=== PATIENT | male | born 1955 | race Caucasian/White ===

== ENCOUNTER 2020-02-01 10:13 | Outpatient (CLI) | payer MEDICARE, OTHER | END 2020-02-01 10:14 | disposition home or self-care (01) | LOC: RT 10:13 | PROVIDERS: ATTEND Internal Medicine Cardiovascular Disease | DX: I25.10 Atherosclerotic heart disease of native coronary artery without angina pectoris (principal) | CPT/HCPCS: 93005 ==

== ENCOUNTER 2021-12-04 09:12 | Outpatient (CLI) | payer MEDICARE, OTHER ==
[2021-12-04 09:57] LABS: CHOL/HDL RATIO 3.2 (<5.0); CHOLESTEROL 173 mg/dL; HDL CHOLESTEROL 54 mg/dL; TRIGLYCERIDES 30 mg/dL
== END 2021-12-04 09:13 | disposition home or self-care (01) ==
LOC: LAB 09:12
PROVIDERS: ATTEND Internal Medicine Cardiovascular Disease
DX: I10 Essential (primary) hypertension (principal)
CPT/HCPCS: 36415; 80061; 83721

== ENCOUNTER 2021-12-16 07:50 | Outpatient (CLI) | payer MEDICARE, OTHER ==
--- NOTE | 2021-12-16 08:41 | CARDIAC PROCEDURE NOTE ---
Stress Test Report Service Date: 12/16/21 Service Time: 08:00 Ordering Provider: Travon Frances MD Indication for Test: Assess for inducible ischemia in asymptomatic patient with abnormal coronary calcium score (465) on screening. Significant Medical History: Very healthy and active individual without chronic conditions; he is very physically active around his [place]-acre property and denies any chest discomfort, dyspnea, palpitations or decrement in stamina. He had recent fasting lipids showing TChol 173, TG 30, HDLc 54. He believes Dr Frances has recommended initiation of statin for the high calcium score. Cardiac Risk Factors: Negative for hypertension, hyperlipidemia, diabetes, family history and significant tobacco smoking ("social" smoking many yrs ago). Type of Stress Test: Exercise Treadmill Test (ETT) Procedure: -Exercise Treadmill Test- After signing informed consent, the patient performed treadmill exercise using a Nasir protocol. The patient exercised for 10 minutes 51 seconds and achieved a peak heart rate of 146 (94 percent predicted maximum heart rate for age), and an estimated workload of 13.2 METS. The test was terminated due to leg fatigue. Resting heart rate: 58 Peak heart rate: 146 Normal response to exercise. Resting BP: 134/83 Peak BP: 161/77 Normal response of systolic and diastolic BPs to exercise. Rhythm during exercise: Sinus rhythm throughout with rare PVCs. Symptoms: NO report of symptoms referable to the heart. EKG at rest showed sinus bradycardia, otherwise normal in all aspects. EKG at peak stress showed J-point depression with upsloping ST segments NOT meeting EKG diagnostic criteria for ischemia. In Recovery heart rate and blood pressure rapidly and normally returned to baseline levels by 5:00. No imaging was ordered with this stress test. IItalo MD, was present throughout this treadmill stress study and supervised it in its entirety. Summary: 1) Exercise tolerance markedly above average for age and sex as evidenced by LORNA of -38%. 2) Normal resting EKG. 3) Adequate level of exercise was achieved on this treadmill stress test. 4) Normal BP response to exercise. 5) No ischemic changes by EKG criteria were seen at peak stress. 6) No imaging was ordered with this test. CONCLUSIONS: 1) Reassuring Nasir protocol ETT from all aspects. 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
== END 2021-12-16 07:51 | disposition home or self-care (01) ==
LOC: DI 07:50
PROVIDERS: ATTEND Internal Medicine Cardiovascular Disease
DX: R93.89 Abnormal findings on diagnostic imaging of other specified body structures (principal); R93.1 Abnormal findings on diagnostic imaging of heart and coronary circulation; Z87.891 Personal history of nicotine dependence
CPT/HCPCS: 93016; 93017; 93018

== ENCOUNTER 2021-12-23 07:03 | Day surgery (SDC) | payer MEDICARE, OTHER ==
[2021-12-23] MEDS ORDERED: LACTATED RINGERS 1,000 ML IV ONE ×2 (07:35→09:23)
--- NOTE | 2021-12-23 07:49 | ANESTHESIA ---
Pre-Anesthesia VS, & Labs - Diagnosis screening, family history of colon polyps - Procedure colonoscopy Vital Signs: Temp Pulse Resp BP Pulse Ox 36.3 C L 57 L 16 125/95 H 100 12/23/21 07:16 12/23/21 07:16 12/23/21 07:16 12/23/21 07:16 12/23/21 07:16 Height: 5 ft 10 in Weight (kg): 76.2 kg Body Mass Index: 24.0 BMI Classification: Healthy weight - NPO >8 hours - Lab Results Lab results reviewed: Yes Home Medications and Allergies Home Medications: Ambulatory Orders No Known Home Medications 12/23/21 No Known Home Medications 12/23/21 Allergies/Adverse Reactions: Allergies Allergy/AdvReac Type Severity Reaction Status Date / Time No Known Drug Allergies Allergy Verified 12/23/21 07:35 Anes History & Medical History - Anesthetic History Anesthesia Complications: reports: No previous complications Family history of Anesthesia Complications: Denies Family history of Malignant Hyperthermia: Denies - Medical History Cardiovascular: reports: None Pulmonary: reports: None Gastrointestinal: reports: Colon polyps Urinary: reports: None Musculoskeletal: reports: None Endocrine/Autoimmune: reports: None Skin: reports: None - Surgical History General: reports: Appendectomy Orthopedic: reports: Shoulder arthroplasty Exam General: Alert, Oriented x3, Cooperative, No acute distress Dental: Poor dentition Mouth Openin Fingerbreadth Neck Mobility: Normal Mallampati classification: II Plan Anesthesia Type: General, Total IV Consent for Procedure(s) Verified and Reviewed: Yes Code Status: Attempt Resuscitation ASA classification: 2-Mild systemic disease Is this case an emergency?: No
[2021-12-23] MEDS ORDERED: GLYCOPYRROLATE 1 MG/5 ML VIAL ONE (09:24)
[2021-12-23 10:02] VITALS: BP 114/71
--- NOTE | 2021-12-23 15:26 | ANESTHESIA POST OP EVALUATION ---
Anesthesia Post Eval - Post Anesthesia Eval Vitals: Last Vital Signs Temp 36.4 C L 12/23/21 10:01 Pulse 62 12/23/21 10:01 Resp 16 12/23/21 10:01 BP 114/71 12/23/21 10:01 Pulse Ox 100 12/23/21 10:01 CV Function Including HR & BP: Stable Pain Control: Satisfactory Nausea & Vomiting: Negative Mental Status: Baseline Respiratory Status: Airway Patent Hydration Status: Satisfactory Anesthesia Complications: None
== END 2021-12-23 07:04 | disposition home or self-care (01) ==
LOC: SDS 07:03
PROVIDERS: ATTEND Surgery
PROC: 0DBL8ZZ Excision of Transverse Colon, Via Natural or Artificial Opening Endoscopic (ICD-10-PCS; principal; 2021-12-23 08:15)
DX: Z12.11 Encounter for screening for malignant neoplasm of colon (principal); D12.3 Benign neoplasm of transverse colon; K64.8 Other hemorrhoids; K57.30 Diverticulosis of large intestine without perforation or abscess without bleeding; I25.10 Atherosclerotic heart disease of native coronary artery without angina pectoris; G25.0 Essential tremor; Z83.71 Family history of colonic polyps
CPT/HCPCS: 45380; J7120

== ENCOUNTER 2022-02-04 10:44 | Outpatient (CLI) | payer MEDICARE, OTHER ==
--- NOTE | 2022-02-04 17:12 | Ultrasound Report ---
PROCEDURE: Aorta Screening INDICATIONS: SCREENING FOR AAA TECHNIQUE: Real time scanning was performed of the aorta and iliac arteries, with image documentatio n. COMPARISON: None FINDINGS: Aorta: Proximal aortic diameter measures 2.2 x 2.0 cm. Mid-aorta measures 2.1 x 2.1 cm. Distal aor tic diameter is 1.9 x 2.0 cm. Iliac arteries: Right common iliac artery measures 1.3 x 1.3 cm. Left common iliac artery measures 1.2 x 1.0 cm. IMPRESSION: No evidence of abdominal aortic aneurysm. Reviewed by: Maci Prakash MD, PhD on 02/04/2022 5:11 PM PDT Approved by: Maci Prakash MD, PhD on 02/04/2022 5:11 PM PDT Station ID: [id number]
== END 2022-02-04 10:45 | disposition home or self-care (01) ==
LOC: DI 10:44
PROVIDERS: ATTEND Nurse Practitioner Family
DX: Z13.6 Encounter for screening for cardiovascular disorders (principal)